=== PATIENT | male | born 1935 | race Caucasian/White ===

== ENCOUNTER 2021-09-01 09:41 | Day surgery (SDC) | payer MEDICARE, OTHER ==
[~2021-09-01] VITALS: Ht 182.9 cm; Wt 112.4 kg
[2021-09-01] VITALS (10 sets, daily range): BP systolic 126–170; BP diastolic 58–100
[2021-09-01] MEDS ORDERED: diphenhydrAMINE 25mg capsule PO PRN (10:00)
[2021-09-01] MEDS ORDERED: normal saline 1,000 ML IV SCH (10:00)
[2021-09-01] MEDS ORDERED: APIX5TAB3 PO (10:10)
[2021-09-01] MEDS ORDERED: TERA2CAP4 PO (10:10)
[2021-09-01] MEDS ORDERED: ATOR10TA PO (10:10)
[2021-09-01] MEDS ORDERED: FINA5TAB42 PO (10:10)
[2021-09-01 10:34] LABS: BASOPHILS # (AUTO) 0.1 X10'3 (0-0.2); EOSINOPHILS # (AUTO) 0.2 X10'3 (0-0.9); EOSINOPHILS % (AUTO) 2.3 % (0-6); HEMATOCRIT 47.1 % (42.0-52.0); HEMOGLOBIN 16.2 g/dl (14.0-17.9); LYMPHOCYTES # (AUTO) 1.8 X10'3 (1.1-4.8); LYMPHOCYTES % (AUTO) 21.5 % (21-51); MEAN CORPUSCULAR HEMOGLOBIN 30.2 PG (27.0-31.0); MEAN CORPUSCULAR HGB CONC 34.4 g/dL (33.0-36.5); MEAN CORPUSCULAR VOLUME 87.9 FL (78-98); MONOCYTES # (AUTO) 0.7 X10'3 (0-0.9); MONOCYTES % (AUTO) 8.4 % (2-12); NEUTROPHILS # (AUTO) 5.6 X10'3 (1.8-7.7); NEUTROPHILS % (AUTO) 66.8 % (42-75); PLATELET COUNT 166 X10'3 (140-440); RED BLOOD COUNT 5.36 X10'6 (4.70-6.10); RED CELL DISTRIBUTION WIDTH 13.8 % (11.5-14.5); WHITE BLOOD COUNT 8.3 X10'3 (4.5-11.0)
[2021-09-01 10:45] LABS: ALBUMIN 4.5 G/DL (3.4-5.0); ANION GAP 8 (8-16); BLOOD UREA NITROGEN 18 MG/DL (7-18); CALCIUM 9.6 MG/DL (8.5-10.1); CHLORIDE 103 MMOL/L (99-107); CREATININE 1.29 MG/DL (0.60-1.10); GLUCOSE 108 MG/DL (70-104); MAGNESIUM 2.2 MG/DL (1.5-2.4); POTASSIUM 4.5 MMOL/L (3.5-5.1); SODIUM 140 MMOL/L (135-145); TOTAL CARBON DIOXIDE 28.8 MMOL/L (24-32); eGFR 53 ML/MIN
[2021-09-01] MEDS ORDERED: LIDOcaine 1% (10mg/ml)w/preservative injection 20ml MDV ONE (11:53)
[2021-09-01] MEDS ORDERED: iohexol 350 MG/1 ML 200ml bottle ONE (11:53)
[2021-09-01] MEDS ORDERED: midazolam 1 mg/ML 2ml injection ONE ×3 (11:53→12:38)
[2021-09-01] MEDS ORDERED: heparin 1,000unit/ml 10ml vial 10 ML ONE (11:53)
[2021-09-01] MEDS ORDERED: iohexol 350 MG/ML 50ML vial IV ONE (11:53)
[2021-09-01] MEDS ORDERED: fentaNYL/PF 50MCG/1 ML 2ML syringe ONE (11:53)
[2021-09-01] MEDS ORDERED: hydrALAZINE 20mg/ml inj. IV ONE (12:30)
[2021-09-01] MEDS ORDERED: proCHLORperazine 10 MG/2 ml inj IV PRN (13:25)
[2021-09-01] MEDS ORDERED: acetaminophen 325mg tablet PO PRN (13:25)
[2021-09-01] MEDS ORDERED: HYDROcodone/acetaminophen 10/325mg tab PO PRN (13:25)
[2021-09-01] MEDS ORDERED: HYDROcodone/acetaminophen 5mg/325mg tablet PO PRN (13:25)
[2021-09-01] MEDS ORDERED: ondansetron/PF 4mg/2ml inj IV PRN (13:25)
--- NOTE | 2021-09-01 14:10 | NUR ---
Notified Dr. 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 MD aware of heart block and no new orders. Will continue to monitor patient.
== END 2021-09-01 17:00 | disposition home or self-care (01) ==
LOC: SSTAY O 09:41
PROVIDERS: ATTEND Internal Medicine Cardiovascular Disease
DX: R07.89 Other chest pain (principal); I25.10 Atherosclerotic heart disease of native coronary artery without angina pectoris; I47.2 Ventricular tachycardia; E78.00 Pure hypercholesterolemia, unspecified; N40.0 Benign prostatic hyperplasia without lower urinary tract symptoms; Z79.01 Long term (current) use of anticoagulants; Z95.1 Presence of aortocoronary bypass graft; Z98.41 Cataract extraction status, right eye; Z98.42 Cataract extraction status, left eye; Z98.890 Other specified postprocedural states; Z96.641 Presence of right artificial hip joint; Z90.49 Acquired absence of other specified parts of digestive tract; Z85.038 Personal history of other malignant neoplasm of large intestine; Z72.89 Other problems related to lifestyle; Z79.899 Other long term (current) drug therapy; Z81.1 Family history of alcohol abuse and dependence; Z82.49 Family history of ischemic heart disease and other diseases of the circulatory system
CPT/HCPCS: 36415; 80048; 83735; 85025; 85610; 93005; 93459; 93571; 99152; 99153; C1760; C1769; C1894; J0360; J1644; J2250; J3010; J3490; Q9967; A4620; A6258